=== PATIENT | male | born 1955 | race Caucasian/White ===

== ENCOUNTER 2019-11-20 06:56 | Outpatient (CLI) | payer MEDICARE, OTHER, SELFPAY ==
[2019-11-20 07:36] LABS: Alanine Aminotransferase 35 U/L (4-50); Albumin Level 4.7 g/dL (3.5-5.1); Alkaline Phosphatase 42 U/L (38-126); Aspartate Amino Transferase 37 U/L (17-59); Bilirubin,Total 0.8 mg/dL (0.2-1.3); Blood Urea Nitrogen 17 mg/dL (9-20); Calcium 9.3 mg/dL (8.4-10.2); Carbon Dioxide 29 mmol/L (22-30); Chloride 106 mmol/L (98-107); Cholesterol 144 mg/dL (0-200); Estimated Glomerular Filt Rate > 60; Glucose 101 mg/dL (75-110); HDL Direct 40 mg/dL; Potassium 4.3 mmol/L (3.4-5.0); Sodium 140 mmol/L (137-145); Triglycerides 72 mg/dL (<150)
[2019-11-20 07:47] LABS: LDL Cholesterol Direct 85 mg/dL
== END 2019-11-20 06:57 | disposition home or self-care (01) ==
PROVIDERS: PCP Family Medicine; Visit Provider Physician Assistant
DX: E03.9 Hypothyroidism, unspecified (principal); E78.5 Hyperlipidemia, unspecified
CPT/HCPCS: 36415; 80053; 80061; 84443

== ENCOUNTER 2020-01-04 11:15 | Outpatient (CLI) | payer MEDICARE, OTHER, SELFPAY ==
--- NOTE | ~2020-01-04 | CT_ITS ---
EXAMINATION: CT chest wo con DATE: 01/04/2020 11:35 INDICATION: Solitary pulmonary nodule. TECHNIQUE: Computed tomography (CT) of the chest was performed without intravenous contrast. The dose -length product was 139.23 mGy-cm. Automated exposure control and iterative reconstruction technique were employed. COMPARISON: 10/01/2015 FINDINGS: There are calcified left hilar lymph nodes as well as left lower lobe pulmonary nodules, co nsistent with chronic granulomatous disease. There is atherosclerosis of the coronary arteries. Heart size normal. No significant pleural or pericardial effusion. Visualized aspects of the upper abdomen are unremarkable. There is a 4 mm right upper lobe nodule, image 37. This was not definitely seen on prior examination. There is a 4 mm nodule left lower lobe, image 88, without significant change allo wing for difference in technique. Mild thoracic spondylosis. Visualized aspects of the upper abdomen are unremarkable. No focal airspace consolidation. No pneumothorax. IMPRESSION: 1. 4 mm nodules right upper and left lower lobe. Additional calcified granulomas are present. These f indings are likely benign. Follow-up low dose CT chest in 12 months recommended. Reviewed, dictated and finalized at location A. IMPRESSION: 1. 4 mm nodules right upper and left lower lobe. Additional calcified granuloma s are present. These findings are likely benign. Follow-up low dose CT chest in 12 months recommended.
== END 2020-01-04 11:16 | disposition home or self-care (01) ==
PROVIDERS: PCP Family Medicine; Visit Provider Physician Assistant
DX: R91.1 Solitary pulmonary nodule (principal); R91.8 Other nonspecific abnormal finding of lung field
CPT/HCPCS: 71250

== ENCOUNTER 2020-01-21 14:27 | Outpatient (CLI) | payer MEDICARE, OTHER, SELFPAY ==
--- NOTE | 2020-01-27 23:20 | WPDPFTINT ---
PFT Interpretation PFT Interpretation: DOS: 01/21/2020 REQUESTING: Shanon Frazier PA-C REASON FOR TESTING: cough, wheezing PULMONARY FUNCTION TESTS Results are reliable and reproducible Spirometry: FEV1 97%, FVC 91%, FEV1% 74%, all normal. No change with bronchodilator. Lung volumes: Total lung capacity 132% mild hyperinflation. Residual volume 186% severe air trapping. Normal airway resistance. Diffusion: DLCO 105%, normal. Flow volume loop: Normal. IMPRESSION: Normal spirometry, mild hyperinflation with severe air trapping consistent with an obstructive process, normal diffusion. Lack of response to bronchodilators should not preclude use if clinically indicated. Karyna Collier MD
== END 2020-01-21 14:28 | disposition home or self-care (01) ==
PROVIDERS: PCP Family Medicine; Visit Provider Physician Assistant
DX: R05 Cough (principal); R06.2 Wheezing
CPT/HCPCS: 94060; 94726; 94729

== ENCOUNTER 2020-05-20 07:02 | Outpatient (CLI) | payer MEDICARE, OTHER, SELFPAY ==
[2020-05-20 07:54] LABS: Hemoglobin 15.1 g/dL (14.0-18.0); Mean Corpuscular HGB Conc 33.6 g/dl (32-36); Mean Corpuscular Hemoglobin 32.2 pg (26-34); Mean Corpuscular Volume 95.9 fl (80-100); Mean Platelet Volume 11.4 fl (7.4-10.4); Platelet Count Result 189 k/mm3 (150-375); Red Blood Count 4.69 M/mm3 (4.6-6.20); White Blood Count 6.2 K/mm3 (4.5-10.0)
[2020-05-20 07:57] LABS: Add Urine Microscopic? YES; Appearance Urine Clear (Clear); Bacteria Urine Trace /hpf; Bilirubin Urine Negative (Negative); Blood Urine Negative (Negative); Color Urine Yellow (Yellow); Glucose Urine UA Negative (Negative); Ketones Urine Negative (Negative); Leukocyte Esterase Ur Negative LEU/UL (NEGATIVE); Mucus Urine Rare /lpf; Nitrate Urine Negative (Negative); Protein Urine 1+ mg/dL (Negative); RBC Urine 0-2 /hpf (0-2); Urobilinogen Urine Negative mg/dL (<2.0); WBC Urine 0-3 /hpf (0-3)
[2020-05-20 08:05] LABS: Alanine Aminotransferase 33 U/L (4-50); Albumin Level 4.3 g/dL (3.5-5.1); Alkaline Phosphatase 42 U/L (38-126); Anion Gap 6 mmol/L (8-16); Aspartate Amino Transferase 30 U/L (17-59); Bilirubin,Total 0.8 mg/dL (0.2-1.3); Blood Urea Nitrogen 18 mg/dL (9-20); Calcium 9.6 mg/dL (8.4-10.2); Carbon Dioxide 31 mmol/L (22-30); Chloride 105 mmol/L (98-107); Cholesterol 138 mg/dL (0-200); Estimated Glomerular Filt Rate > 60; Glucose 111 mg/dL (75-110); HDL Direct 43 mg/dL; Potassium 4.6 mmol/L (3.4-5.0); Sodium 142 mmol/L (137-145); Triglycerides 70 mg/dL (<150)
[2020-05-20 08:16] LABS: LDL Cholesterol Direct 80 mg/dL
[2020-05-20 08:35] LABS: Prostate Specific Antigen 0.8 ng/mL (< OR = 4.0)
== END 2020-05-20 07:03 | disposition home or self-care (01) ==
PROVIDERS: PCP Family Medicine; Visit Provider Family Medicine
DX: E78.2 Mixed hyperlipidemia (principal); I25.10 Atherosclerotic heart disease of native coronary artery without angina pectoris; E03.9 Hypothyroidism, unspecified; R35.1 Nocturia
CPT/HCPCS: 36415; 80053; 80061; 81001; 84153; 84443; 85027

== ENCOUNTER 2020-10-30 07:27 | Outpatient (CLI) | payer MEDICARE, SELFPAY ==
[2020-10-30 08:05] LABS: Basophils Absolute Auto 0.1 K/mm3 (0.0-0.1); Basophils Percent Auto 0.9 % (0.2-1.2); Eosinophils Absolute Auto 0.1 K/mm3 (0-0.3); Eosinophils Percent Auto 1.7 % (0-4.4); Hematocrit 46.1 % (42.0-52.0); Hemoglobin 15.3 g/dL (14.0-18.0); Immature Granulocyte Absolute 0.03 K/mm3 (0.00-0.031); Immature Granulocyte Percent A 0.5 % (0-0.5); Lymphocytes Absolute Auto 1.84 K/mm3 (0.9-3.2); Lymphocytes Percent Auto 27.7 % (18.3-44.2); Mean Corpuscular HGB Conc 33.2 g/dl (32-36); Mean Corpuscular Hemoglobin 32.3 pg (26-34); Mean Corpuscular Volume 97.3 fl (80-100); Monocytes Absolute Auto 0.8 K/mm3 (0.1-0.6); Monocytes Percent Auto 11.4 % (2.6-8.5); Neutrophils Absolute Auto 3.8 K/mm3 (1.3-6.7); Neutrophils Percent Auto 57.8 % (45.5-73.1); Platelet Count Result 205 k/mm3 (150-375); Red Blood Count 4.74 M/mm3 (4.6-6.20); White Blood Count 6.6 K/mm3 (4.5-10.0)
[2020-10-30 08:13] LABS: Alanine Aminotransferase 35 U/L (4-50); Albumin Level 4.4 g/dL (3.5-5.1); Alkaline Phosphatase 42 U/L (38-126); Anion Gap 4 mmol/L (8-16); Aspartate Amino Transferase 35 U/L (17-59); Bilirubin,Total 0.6 mg/dL (0.2-1.3); Blood Urea Nitrogen 15 mg/dL (9-20); Calcium 9.5 mg/dL (8.4-10.2); Carbon Dioxide 29 mmol/L (22-30); Chloride 108 mmol/L (98-107); Estimated Glomerular Filt Rate > 60; Glucose 104 mg/dL (75-110); Glucose 105 mg/dL (75-110); Potassium 4.4 mmol/L (3.4-5.0); Sodium 141 mmol/L (137-145)
[2020-10-30 08:25] LABS: Hemoglobin A1C 5.8 % (<5.7)
[2020-11-06 00:19] LABS: ANCA Screen Negative (Negative)
== END 2020-10-30 07:28 | disposition home or self-care (01) ==
PROVIDERS: PCP Family Medicine; Visit Provider Family Medicine
DX: E11.65 Type 2 diabetes mellitus with hyperglycemia (principal); H35.63 Retinal hemorrhage, bilateral; H35.82 Retinal ischemia; E03.9 Hypothyroidism, unspecified; E78.5 Hyperlipidemia, unspecified
CPT/HCPCS: 36415; 80053; 82947; 83036; 84443; 85025; 86021

== ENCOUNTER 2021-06-01 06:44 | Outpatient (CLI) | payer MEDICARE, SELFPAY ==
[2021-06-01 07:28] LABS: Hematocrit 46.1 % (42.0-52.0); Hemoglobin 15.5 g/dL (14.0-18.0); Mean Corpuscular HGB Conc 33.6 g/dl (32-36); Mean Corpuscular Hemoglobin 32.4 pg (26-34); Mean Corpuscular Volume 96.4 fl (80-100); Mean Platelet Volume 10.6 fl (7.4-10.4); Platelet Count Result 186 k/mm3 (150-375); Red Blood Count 4.78 M/mm3 (4.6-6.20); White Blood Count 6.2 K/mm3 (4.5-10.0)
[2021-06-01 07:32] LABS: Add Urine Microscopic? YES; Appearance Urine Clear (Clear); Bilirubin Urine Negative (Negative); Blood Urine Negative (Negative); Color Urine Yellow (Yellow); Glucose Urine UA Negative (Negative); Ketones Urine Negative (Negative); Leukocyte Esterase Ur Negative LEU/UL (NEGATIVE); Mucus Urine Rare /lpf; Nitrate Urine Negative (Negative); Protein Urine Negative (Negative); RBC Urine 0-2 /hpf (0-2); Specific Grav Ur 1.017 (1.001-1.035); Urobilinogen Urine Negative mg/dL (<2.0); WBC Urine 0-3 /hpf (0-3)
[2021-06-01 07:34] LABS: Hemoglobin A1C 5.5 % (<5.7)
[2021-06-01 07:38] LABS: Alanine Aminotransferase 26 U/L (4-50); Albumin Level 4.5 g/dL (3.5-5.1); Alkaline Phosphatase 43 U/L (38-126); Anion Gap 7 mmol/L (8-16); Aspartate Amino Transferase 28 U/L (17-59); Bilirubin,Total 0.8 mg/dL (0.2-1.3); Blood Urea Nitrogen 13 mg/dL (9-20); Calcium 9.4 mg/dL (8.4-10.2); Carbon Dioxide 27 mmol/L (22-30); Chloride 103 mmol/L (98-107); Cholesterol 144 mg/dL (0-200); Estimated Glomerular Filt Rate > 60; Glucose 108 mg/dL (65-110); HDL Direct 40 mg/dL; Potassium 4.4 mmol/L (3.4-5.0); Sodium 137 mmol/L (137-145); Triglycerides 76 mg/dL (<150)
[2021-06-01 07:50] LABS: LDL Cholesterol Direct 81 mg/dL
== END 2021-06-01 06:45 | disposition home or self-care (01) ==
PROVIDERS: PCP Family Medicine; Visit Provider Family Medicine
DX: R73.01 Impaired fasting glucose (principal); J44.9 Chronic obstructive pulmonary disease, unspecified; E03.8 Other specified hypothyroidism; E78.5 Hyperlipidemia, unspecified; Z12.5 Encounter for screening for malignant neoplasm of prostate
CPT/HCPCS: 36415; 80053; 80061; 81001; 83036; 84153; 84443; 85027

== ENCOUNTER 2021-12-16 09:43 | Outpatient (CLI) | payer MEDICARE, SELFPAY ==
[2021-12-16 10:11] LABS: Alanine Aminotransferase 26 U/L (6-50); Albumin Level 4.5 g/dL (3.5-5.1); Alkaline Phosphatase 41 U/L (38-126); Anion Gap 8 mmol/L (8-16); Aspartate Amino Transferase 29 U/L (17-59); Blood Urea Nitrogen 17 mg/dL (9-20); Calcium 9.2 mg/dL (8.4-10.2); Carbon Dioxide 25 mmol/L (22-30); Chloride 108 mmol/L (98-107); Estimated Glomerular Filt Rate > 60; Glucose 100 mg/dL (65-110); Potassium 4.4 mmol/L (3.4-5.0); Sodium 141 mmol/L (137-145)
== END 2021-12-16 09:44 | disposition home or self-care (01) ==
PROVIDERS: PCP Family Medicine; Visit Provider Physician Assistant
DX: K21.9 Gastro-esophageal reflux disease without esophagitis (principal); E78.5 Hyperlipidemia, unspecified; E03.9 Hypothyroidism, unspecified
CPT/HCPCS: 36415; 80053; 84443

== ENCOUNTER 2022-06-15 06:55 | Outpatient (CLI) | payer MEDICARE, SELFPAY ==
[2022-06-15 07:17] LABS: Hematocrit 45.4 % (42.0-52.0); Hemoglobin 15.1 g/dL (14.0-18.0); Mean Corpuscular HGB Conc 33.3 g/dl (32-36); Mean Corpuscular Hemoglobin 32.1 pg (26-34); Mean Corpuscular Volume 96.4 fl (80-100); Mean Platelet Volume 11.3 fl (7.4-10.4); Platelet Count Result 186 k/mm3 (150-375); Red Blood Count 4.71 M/mm3 (4.6-6.20); Red Cell Distribution Width 11.9 % (11.5-14.5)
[2022-06-15 07:31] LABS: Alanine Aminotransferase 29 U/L (6-50); Albumin Level 4.6 g/dL (3.5-5.1); Alkaline Phosphatase 42 U/L (38-126); Anion Gap 4 mmol/L (8-16); Aspartate Amino Transferase 31 U/L (17-59); Bilirubin,Total 0.7 mg/dL (0.2-1.3); Blood Urea Nitrogen 19 mg/dL (9-20); Calcium 9.1 mg/dL (8.4-10.2); Carbon Dioxide 31 mmol/L (22-30); Chloride 107 mmol/L (98-107); Cholesterol 128 mg/dL (0-200); Estimated Glomerular Filt Rate > 60; Glucose 107 mg/dL (65-110); HDL Direct 38 mg/dL; Potassium 4.3 mmol/L (3.4-5.0); Sodium 142 mmol/L (137-145); Triglycerides 56 mg/dL (<150)
[2022-06-15 07:42] LABS: LDL Cholesterol Direct 66 mg/dL
[2022-06-15 08:00] LABS: Prostate Specific Antigen 0.6 ng/mL (< OR = 4.0)
[2022-06-15 08:17] LABS: Add Urine Microscopic? NO; Appearance Urine Clear (Clear); Bilirubin Urine Negative (Negative); Blood Urine Negative (Negative); Color Urine Yellow (Yellow); Glucose Urine UA Negative (Negative); Ketones Urine Negative (Negative); Leukocyte Esterase Ur Negative LEU/UL (NEGATIVE); Nitrate Urine Negative (Negative); Protein Urine Negative (Negative); Specific Grav Ur >= 1.030 (1.001-1.035); Urobilinogen Urine 0.2 mg/dL (<2.0)
[2022-06-15 08:44] LABS: Hemoglobin A1C 5.9 % (<5.7)
== END 2022-06-15 06:56 | disposition home or self-care (01) ==
PROVIDERS: PCP Family Medicine; Visit Provider Family Medicine
DX: R73.01 Impaired fasting glucose (principal); E03.9 Hypothyroidism, unspecified; E78.5 Hyperlipidemia, unspecified; I25.10 Atherosclerotic heart disease of native coronary artery without angina pectoris; R35.1 Nocturia
CPT/HCPCS: 36415; 80053; 80061; 81003; 83036; 84153; 84443; 85027

== ENCOUNTER 2022-11-25 06:35 | Outpatient (CLI) | payer MEDICARE, SELFPAY ==
[2022-11-25 07:13] LABS: Hemoglobin A1C 5.6 % (<5.7)
[2022-11-25 07:18] LABS: Alanine Aminotransferase 36 U/L (6-50); Albumin Level 4.5 g/dL (3.5-5.1); Alkaline Phosphatase 38 U/L (38-126); Anion Gap 8 mmol/L (8-16); Aspartate Amino Transferase 33 U/L (17-59); Bilirubin,Total 0.9 mg/dL (0.2-1.3); Blood Urea Nitrogen 18 mg/dL (9-20); Carbon Dioxide 26 mmol/L (22-30); Chloride 106 mmol/L (98-107); Cholesterol 140 mg/dL (0-200); Estimated Glomerular Filt Rate > 60; Glucose 93 mg/dL (65-110); HDL Direct 42 mg/dL; Sodium 140 mmol/L (137-145); Triglycerides 86 mg/dL (<150)
[2022-11-25 07:29] LABS: LDL Cholesterol Direct 78 mg/dL
== END 2022-11-25 06:36 | disposition home or self-care (01) ==
LOC: ANHLAB 06:36
PROVIDERS: PCP Family Medicine; Visit Provider Family Medicine
DX: E78.5 Hyperlipidemia, unspecified (principal); E03.9 Hypothyroidism, unspecified; R73.01 Impaired fasting glucose
CPT/HCPCS: 36415; 80053; 80061; 83036; 84443

== ENCOUNTER → 2023-01-05 08:33 | Outpatient (CLI) | payer MEDICARE, SELFPAY ==
--- NOTE | ~2023-01-05 | XR_ITS ---
AP and lateral views of the bilateral hips Clinical history: Pain Findings: No acute fracture or dislocation is seen. Osseous alignment is anatomic. Bilateral hip join ts and bilateral SI joints are preserved. Soft tissues are unremarkable. Impression: No significant abnormality is seen. Reviewed, dictated and finalized at [facility]. Impression: No significant abnormality is seen.
== END ==
PROVIDERS: PCP Family Medicine; Visit Provider Family Medicine
DX: M25.551 Pain in right hip (principal); M25.552 Pain in left hip
CPT/HCPCS: 73521

== ENCOUNTER → 2023-01-20 09:42 | Outpatient (CLI) | payer MEDICARE, SELFPAY ==
--- NOTE | ~2023-01-20 | XR_ITS ---
Lumbosacral Spine: AP and lateral views Clinical History: Pain Findings: There is 18 degrees levoscoliosis of lumbar spine. No fracture evident. There is severe deg enerative disc narrowing at L2-L3, L3-L4, L4-L5. There is 4 mm retrolisthesis of L1 over L2. There is moderate facet arthropathy throughout the lumbar spine. The intervertebral disc spaces are preserved . The sacroiliac joints are normally outlined. Impression: 4 mm retrolisthesis of L1 over L2. 18 degrees levoscoliosis. Moderate to advanced degenerative spondylosis, as detailed above. Reviewed, dictated and finalized at location M. Impression: 4 mm retrolisthesis of L1 over L2. 18 degrees levoscoliosis. Moderate to advanced degenerative spondylosis, as detailed above.
== END ==
PROVIDERS: PCP Family Medicine; Visit Provider Family Medicine
DX: M25.551 Pain in right hip (principal); M25.552 Pain in left hip; M47.896 Other spondylosis, lumbar region
CPT/HCPCS: 72100

== ENCOUNTER 2023-03-15 08:00 | Outpatient (RCR) | payer MEDICARE, SELFPAY ==
--- NOTE | 2023-02-15 09:45 | OPREHPOC ---
Outpatient Therapy Plan of Care This is a Multidisciplinary Plan of Care that may contain components documented by all disciplines (PT, OT, and ST.) PT Problem 1 PT Problem #1 Knowledge Deficit PT Goal 1 Goal 1* indep with HEP 2* demonstrate correct posture with exercises PT Problem 2 PT Problem #2 Pain PT Goal 1 Goal 1* pt report pain rating of 1/10 at worst 2* pt self assessment Oswestry score of 16% limitation in functional activity level PT Problem 3 PT Problem #3 Impaired Flexibility PT Goal 1 Goal hamstring length with supine SLR to 55' 1* R 2* L supine piriformis length with hip and knee flexion > 90', cross midline of body 3* R 4* L 5* anterior hip/quad length with prone knee flexion R 135' PT Problem 4 PT Problem #4 Impaired Strength PT Goal 1 Goal 1* pt perform supine bridge 20 reps with 5 sec hold and good hip stability single leg standing with good stability 15 seconds 2* R 3* L 4* pt perform hip and trunk strengthening exercises in standing 20 reps
--- NOTE | 2023-02-15 09:46 | PTOPEVAL1 ---
Assessment and note entered by Salima Uriostegui, PT Evaluation Information Assessment Status Evaluation Diagnosis low back pain, spondylosis Onset begin December Subjective Information Shahzad reports: was sitting, went to stand up and pain shot down leg; had xray of hip and back; have not been walking since back pain increased; have not had any PT for back; ACTIVITY: retired, golf, walk for fitness; history of being a runner and did marathons; Reported Pain Level Pain Score Self Report Additional Pain Score Comments pain range in the past week 1-2/; pain increase with standing 15-20 min pain decrease with sit/rest; moving sleeping is OK; Oswestry self assessment score of 22% functioanl limitation. Assessment PT Clinical Summary Shahzad has the diagnosis of low back pain, spondylosis. Pain is increased with standing and decreased with sitting or walking. Self assessment Oswestry score of 22% limitation in activity level. He does not perform any exercises for his back at home. But does have a [employer] membership. With the evaluation: he has tightness over R and L hamstring & piriformis and R anterior hip/quad, with weakness over trunk and hips--is not able to single leg stand; in standing, has postural changes with curvature of his spine and decreased R and L hip IR motion. Skilled PT services are indicated for modalities to decrease pain, therapeutic exercises to increase flexibility and strength of trunk and hips, with education for HEP and posture. Plan of Care Interventions Electrical Stimulation,Hot Pack/Cold Pack,Manual Therapy,Neuro Re-education,Patient Education,Therapeutic Activities,Therapeutic Exercise,Ultrasound,Other Other Interventions taping, I[facility] PT Services Indicated Yes Treatment Frequency and 1x/wk for 4 weeks Duration These treatments will address the objective and functional deficits as defined above. The patient will be advanced safely and appropriately in order for the patient to progress towards his/her prior level of function. Additional exercises will be intr
--- NOTE | 2023-03-15 08:30 | PTOPDC ---
Assessment and note entered by Salima Uriostegui, PT Evaluation Information Assessment Status Discharge Diagnosis low back pain, spondylosis Onset begin December Subjective Information is pleased with how he has improved since coming for therapy; likes the exercises and knows how to manage his back pain; has been walking every day outside at the park; agrees to d/c from PT; Reported Pain Level Pain Score Self Report Additional Pain Score Comments pain range in the past week: 0-4/10, stiff and sore, in low back L > R; no pain in legs decrease pain with moving, walking increase pain- not able to identify any causes reviewed and reinforced pain management with activity/rest balance; use of heat PRN, stretching and moving to keep flexibility and strength; Assessment PT Clinical Summary Shahzad has received 5 PT sessions. He has improved in all areas, except pain rating at the highest rating; increase trunk and hip strength, flexibility of hamstrings, anterior hip- quads and piriformis muscles bilateral, education completed for home exercises, posture and body mechanics. Self assessment Oswestry functional limitation score from 22 to 18% limitation in activity level. The goals were achieved, except pain rating at the worst. Discharge PT services. He is to continue with his home exercises. Plan of Care PT Services Indicated No
== END 2023-03-15 11:11 | disposition home or self-care (01) ==
LOC: ANHPT 08:00
PROVIDERS: PCP Family Medicine; Visit Provider Physician Assistant
DX: M54.50 Low back pain, unspecified (principal); M47.816 Spondylosis without myelopathy or radiculopathy, lumbar region
CPT/HCPCS: 97110; 97161; 97530

== ENCOUNTER 2023-06-29 06:38 | Outpatient (CLI) | payer MEDICARE, SELFPAY ==
[2023-06-29 07:55] LABS: Hematocrit 47.5 % (42.0-52.0); Hemoglobin 15.9 g/dL (14.0-18.0); Mean Corpuscular HGB Conc 33.5 g/dl (32-36); Mean Corpuscular Hemoglobin 31.9 pg (26-34); Mean Corpuscular Volume 95.4 fl (80-100); Mean Platelet Volume 10.9 fl (7.4-10.4); Platelet Count Result 209 k/mm3 (150-375); Red Blood Count 4.98 M/mm3 (4.6-6.20); Red Cell Distribution Width 11.9 % (11.5-14.5)
[2023-06-29 07:56] LABS: Appearance Urine Clear (Clear); Bilirubin Urine Negative (Negative); Blood Urine Negative (Negative); Color Urine Yellow (Yellow); Glucose Urine UA Negative (Negative); Ketones Urine Negative (Negative); Leukocyte Esterase Ur Negative LEU/UL (NEGATIVE); Nitrate Urine Negative (Negative); Protein Urine Negative (Negative); Specific Grav Ur 1.023 (1.001-1.035); Urobilinogen Urine 0.2 mg/dL (<2.0)
[2023-06-29 08:03] LABS: Add Urine Microscopic? NO
[2023-06-29 08:08] LABS: Alanine Aminotransferase 41 U/L (6-50); Albumin Level 4.2 g/dL (3.5-5.1); Alkaline Phosphatase 49 U/L (38-126); Anion Gap 11 mmol/L (8-16); Aspartate Amino Transferase 35 U/L (17-59); Blood Urea Nitrogen 16 mg/dL (9-20); Calcium 9.2 mg/dL (8.4-10.2); Carbon Dioxide 26 mmol/L (22-30); Chloride 105 mmol/L (98-107); Cholesterol 165 mg/dL (0-200); Estimated Glomerular Filt Rate > 60; Glucose 96 mg/dL (65-110); HDL Direct 42 mg/dL; Potassium 3.9 mmol/L (3.4-5.0); Sodium 142 mmol/L (137-145); Triglycerides 122 mg/dL (<150)
[2023-06-29 08:19] LABS: LDL Cholesterol Direct 96 mg/dL
[2023-06-29 08:36] LABS: Prostate Specific Antigen 0.8 ng/mL (< OR = 4.0)
[2023-06-29 09:04] LABS: Hemoglobin A1C 5.7 % (<5.7)
== END 2023-06-29 06:39 | disposition home or self-care (01) ==
PROVIDERS: PCP Family Medicine; Visit Provider Family Medicine
DX: E03.9 Hypothyroidism, unspecified (principal); E78.5 Hyperlipidemia, unspecified; I25.10 Atherosclerotic heart disease of native coronary artery without angina pectoris; R35.1 Nocturia; R73.01 Impaired fasting glucose; Z00.00 Encounter for general adult medical examination without abnormal findings
CPT/HCPCS: 36415; 80053; 80061; 81003; 83036; 84153; 84443; 85027

== ENCOUNTER 2023-07-23 12:34 | Emergency (ER) | payer MEDICARE, SELFPAY ==
--- NOTE | 2023-07-23 12:37 | ED.URI ---
HPI - URI/Sore Throat General Chief Complaint: Upper Respiratory Infection Stated Complaint: SORE THROAT Time Seen by Provider: 07/23/23 13:11 Source: patient and RN notes reviewed Mode of arrival: ambulatory Limitations: no limitations History of Present Illness HPI Narrative: 68-year-old male presents with concern of for 2-3 day history of scratchy throat and raspy voice. Reports occasional cough. Denies fever, body aches, chills, sweats. Reports some nasal congestion and rhinorrhea. Reports he has been taking DayQuil and NyQuil with some relief MD elicited complaint: sore throat Related Data Home Medications Medication Instructions Recorded Confirmed ascorbic acid 1,000 1 mg PO DAILY 04/27/19 06/29/23 ar-mjnkndpcvhng-kwdfados powder effervescent pack (Emergen-C) aspirin 81 mg tablet,delayed 81 mg PO DAILY 04/27/19 06/29/23 release (Aspir-) cinnamon bark 500 mg capsule 500 mg PO DAILY 04/27/19 06/29/23 (Cinnamon) digestive no.8-L.acidophilus 50 1 tablet PO DAILY 04/27/19 06/29/23 million cell-pectin 100 mg tablet (Digestive Enzyme (acidophilus, pectin, bromelain)) omega 8-uhq-ayr-fish oil 1,000 mg 1 cap PO DAILY 04/27/19 06/29/23 (120 mg-180 mg) capsule (Fish Oil) Allergies Allergy/AdvReac Type Severity Reaction Status Date / Time No Known Allergies Allergy Verified 07/23/23 12:49 Review of Systems Review of Systems: CONSTITUTIONAL: Denies malaise, chills, sweats, or fever. EYES: Denies visual changes, redness, or discharge. ENT: Reports rhinorrhea, congestion, and sore throat. CARDIOVASCULAR: Denies chest pain, palpitations, or edema. RESPIRATORY: Reports occasional cough. Denies dyspnea. GASTROINTESTINAL: Denies abdominal pain, nausea, vomiting, diarrhea SKIN: Denies rash or itching. MUSCULOSKELETAL: Denies myalgia. NEUROLOGIC: Denies headache. All systems reviewed & are unremarkable except as noted in HPI and below PMFSH Past Medical History Medical History Colon cancer screening Gastritis Gastro-esophageal reflux Hyperlipidemia Hypothyroid IFG (impaired fasting glucose) Obstructive sleep apnea Obstructive sleep apnea syndrome Reflux esophagitis Vocal cord bowing Surgical History Surgical History History of appendectomy Family History Family History Sibling Family history of alcoholism Family history of diabetes mellitus in first degree relative Patient's brother is Diabetes mellitus Father Family history of diabetes mellitus in first degree relative Family history of lung cancer Patient's father is Diabetes mellitus Family history of malignant neoplasm Mother Family history of heart disease in male family member before age 55 Family history of cardiovascular disease Social History Social History Smoking status: Never smoker Second hand tobacco smoke exposure: No Alcohol intake: current Drinks per week: 3 Substance use: never Substance use type: does not use Living arrangements: with family Occupation/Education: retired Gender identity (if verbalized by the patient): Male Comments At time of signature, agree with nursing past medical, surgical, social and family history. There is no relevant family history pertinent to the presenting complaint Exam Narrative: GENERAL: Well-appearing, well-nourished, and in no acute distress. HEAD: Normocephalic EYES: PERRLA, conjunctivae clear ENT: Nares clear, turbinates edematous and erythematous, clear discharge. Mucous membranes moist. TM pearly petersen with sharp light reflex bilaterally; no tragal tenderness. Oropharynx not erythematous without lesions. Tonsils not enlarged and without exudate, no drooling, no hoarseness, no trismus, uvula midl
[2023-07-23 12:57] VITALS: BP 108/81; PULSE 65; RESP 16; TEMP 36.9; O2SAT 98
== END 2023-07-23 13:23 | disposition home or self-care (01) ==
PROVIDERS: Emergency Provider Nurse Practitioner; PCP Family Medicine
DX: J06.9 Acute upper respiratory infection, unspecified (principal); Z20.822 Contact with and (suspected) exposure to COVID-19; K21.9 Gastro-esophageal reflux disease without esophagitis; E78.5 Hyperlipidemia, unspecified; E03.9 Hypothyroidism, unspecified; K21.00 Gastro-esophageal reflux disease with esophagitis, without bleeding
CPT/HCPCS: 87081; 87426; 87804; 87880; 99213; G0463

== ENCOUNTER 2024-01-02 06:41 | Outpatient (CLI) | payer MEDICARE, SELFPAY ==
[2024-01-02 07:16] LABS: Alanine Aminotransferase 31 U/L (6-50); Albumin Level 4.4 g/dL (3.5-5.1); Alkaline Phosphatase 52 U/L (38-126); Anion Gap 9 mmol/L (4-12); Aspartate Amino Transferase 33 U/L (17-59); Bilirubin,Total 0.8 mg/dL (0.2-1.3); Blood Urea Nitrogen 16 mg/dL (9-20); Calcium 9.6 mg/dL (8.4-10.2); Carbon Dioxide 27 mmol/L (22-30); Chloride 105 mmol/L (98-107); Estimated Glomerular Filt Rate > 60; Glucose 110 mg/dL (65-110); Potassium 4.4 mmol/L (3.4-5.0); Sodium 141 mmol/L (137-145)
[2024-01-04 11:49] LABS: Hemoglobin A1C 5.7 % (<5.7)
== END 2024-01-02 06:42 | disposition home or self-care (01) ==
LOC: ANHLAB 06:45
PROVIDERS: PCP Family Medicine; Visit Provider Family Medicine
DX: E03.9 Hypothyroidism, unspecified (principal); E78.5 Hyperlipidemia, unspecified; I25.10 Atherosclerotic heart disease of native coronary artery without angina pectoris; R73.01 Impaired fasting glucose
CPT/HCPCS: 36415; 80053; 83036; 84443

== ENCOUNTER 2024-06-29 06:45 | Outpatient (CLI) | payer MEDICARE, SELFPAY ==
[2024-06-29 07:53] LABS: Hematocrit 45.8 % (42.0-52.0); Hemoglobin 15.2 g/dL (14.0-18.0); Mean Corpuscular HGB Conc 33.2 g/dl (32-36); Mean Corpuscular Hemoglobin 31.9 pg (26-34); Mean Platelet Volume 11.4 fl (7.4-10.4); Platelet Count Result 175 k/mm3 (150-375); Red Blood Count 4.77 M/mm3 (4.6-6.20); Red Cell Distribution Width 11.8 % (11.5-14.5); White Blood Count 6.4 K/mm3 (4.5-10.0)
[2024-06-29 07:55] LABS: Add Urine Microscopic? NO; Appearance Urine Clear (Clear); Bilirubin Urine Negative (Negative); Blood Urine Negative (Negative); Color Urine Yellow (Yellow); Glucose Urine UA Negative (Negative); Ketones Urine Negative (Negative); Leukocyte Esterase Ur Negative LEU/UL (Negative); Nitrate Urine Negative (Negative); Protein Urine Negative (Negative); Specific Grav Ur 1.021 (1.001-1.035); pH Urine 6.5 (5.0-9.0)
[2024-06-29 08:04] LABS: Alanine Aminotransferase 25 U/L (6-50); Albumin Level 4.2 g/dL (3.5-5.1); Alkaline Phosphatase 44 U/L (38-126); Anion Gap 2 mmol/L (4-12); Aspartate Amino Transferase 24 U/L (17-59); Bilirubin,Total 0.9 mg/dL (0.2-1.3); Blood Urea Nitrogen 20 mg/dL (9-20); Carbon Dioxide 30 mmol/L (22-30); Chloride 108 mmol/L (98-107); Cholesterol 140 mg/dL (0-200); Estimated Glomerular Filt Rate > 60; Glucose 107 mg/dL (65-110); HDL Direct 42 mg/dL; Potassium 4.2 mmol/L (3.4-5.0); Sodium 140 mmol/L (137-145); Triglycerides 88 mg/dL (<150)
[2024-06-29 08:10] LABS: Hemoglobin A1C 5.9 % (<5.7)
[2024-06-29 08:15] LABS: LDL Cholesterol Direct 68 mg/dL
[2024-06-29 08:35] LABS: Prostate Specific Antigen 0.6 ng/mL (< OR = 4.0)
== END 2024-06-29 06:46 | disposition home or self-care (01) ==
PROVIDERS: PCP Family Medicine; Visit Provider Family Medicine
DX: E78.5 Hyperlipidemia, unspecified (principal); I25.10 Atherosclerotic heart disease of native coronary artery without angina pectoris; E03.9 Hypothyroidism, unspecified; R73.01 Impaired fasting glucose; Z00.00 Encounter for general adult medical examination without abnormal findings; R35.1 Nocturia; Z68.28 Body mass index [BMI] 28.0-28.9, adult
CPT/HCPCS: 36415; 80053; 80061; 81003; 83036; 84153; 84443; 85027

== ENCOUNTER 2024-07-25 15:27 | Outpatient (CLI) | payer MEDICARE, SELFPAY ==
--- NOTE | ~2024-07-25 | XR_ITS ---
XR_[id number]_CR 07/25/2024 15:46 Indication: Cervicalgia Procedure: 3 view cervical spine Comparison: No prior studies for comparison. Findings: There is advanced multilevel facet and uncinate hypertrophy. There is degenerative anteroli sthesis at C4-5 and retrolisthesis at C5-6. There is disc narrowing at C5-6 and C6-7. No prevertebral soft tissue swelling. Odontoid process is normal. Lateral masses normally aligned. Lung apices are n ormal. Impression: 1: Severe cervical spondylosis. Reviewed, dictated and finalized at location A. O [employer] Impression: 1: Severe cervical spondylosis.
== END 2024-07-25 15:28 | disposition home or self-care (01) ==
LOC: MICIMG 15:29
PROVIDERS: PCP Family Medicine; Visit Provider Family Medicine
DX: M47.812 Spondylosis without myelopathy or radiculopathy, cervical region (principal)
CPT/HCPCS: 72040

== ENCOUNTER 2024-07-28 08:18 | Emergency (ER) | payer MEDICARE, SELFPAY ==
[2024-07-28 08:30] VITALS: BP 121/81; PULSE 67; RESP 16; TEMP 36.9; O2SAT 99
--- NOTE | 2024-07-28 08:30 | ED_ITS ---
HPI - URI/Sore Throat General Chief Complaint: Upper Respiratory Infection Stated Complaint: Cough Time Seen by Provider: 07/28/24 08:30 Source: patient Mode of arrival: ambulatory Limitations: no limitations History of Present Illness HPI Narrative: Shahzad is a 69-year-old male patient presenting to the clinic today with complaints of cough, slight headache, postnasal drip, sore throat x 2-3 days. He denies any fevers, chills, or body aches. Denies any shortness of breath or chest pain. Denies any new medications. Has been taking Mucinex for his symptoms. MD elicited complaint: sore throat and nasal congestion Related Data Home Medications ?Medication ?Instructions ?Recorded ?Confirmed ?Last Taken ?Type ascorbic acid 1,000 1 mg PO DAILY 04/27/19 07/25/24 05/02/19 History nz-tiibwqonhegg-ykrojbrd powder effervescent pack (Emergen-C) aspirin 81 mg tablet,delayed 81 mg PO DAILY 04/27/19 07/25/24 05/02/19 History release (Aspir-) cinnamon bark 500 mg capsule 500 mg PO DAILY 04/27/19 07/25/24 05/02/19 History (Cinnamon) digestive no.8-L.acidophilus 50 1 tablet PO DAILY 04/27/19 07/25/24 05/02/19 History million cell-pectin 100 mg tablet (Digestive Enzyme (acidophilus, pectin, bromelain)) omega 6-cfr-lya-fish oil 1,000 mg 1 cap PO DAILY 04/27/19 07/25/24 05/02/19 History (120 mg-180 mg) capsule (Fish Oil) Allergies Allergy/AdvReac Type Severity Reaction Status Date / Time No Known Allergies Allergy Verified 07/28/24 08:33 Review of Systems Review of Systems: Pertinent positives per HPI. Patient denies any fever, chills, rash, visual changes, dizziness, shortness of breath, chest pain, palpitations, nausea, vomiting, diarrhea, constipation, abdominal pain, or any urinary issues. [facility] Past Medical History Medical History Lumbar spondylolysis Obstructive sleep apnea syndrome Vocal cord bowing Colon cancer screening IFG (impaired fasting glucose) Gastritis Reflux esophagitis Gastro-esophageal reflux Obstructive sleep apnea Hypothyroid Hyperlipidemia Surgical History Surgical History History of appendectomy Family History Family History Sibling Family history of alcoholism Family history of diabetes mellitus in first degree relative Patient's brother is Diabetes mellitus Father Family history of diabetes mellitus in first degree relative Family history of lung cancer Patient's father is Diabetes mellitus Family history of malignant neoplasm Mother Family history of heart disease in male family member before age 55 Family history of cardiovascular disease Social History Social History Smoking status: Never smoker Second hand tobacco smoke exposure: No Alcohol intake: current Drinks per week: 3 Substance use: never Substance use type: does not use Living arrangements: with family Occupation/Education: retired Gender identity (if verbalized by the patient): Male Comments At the time of my signature, I reviewed and agree with the nursing past medical, surgical, social, and family history. There is no relevant family history pertinent to the patient complaint. Exam Narrative: General: Well-developed, well nourished, in no apparent distress Head: Normocephalic, atraumatic Eyes: Pupils equally round and reactive to light bilaterally, EOM intact, sclera and conjunctive clear, no discharge, lids normal Ears: TMs intact and clear, ear canals clear, no drainage, grossly hearing normal. Nose: Nares patent, clear nasal discharge, no inflammation, no sinus tenderness. Mouth: Oral pharynx red without lesions or masses, good dentition, MMM. Postnasal drip Neck: Supple, trachea midline, no enlargement of anterior or posterior cervical nodes, no thyroid masses or goiter palpable. Cardio: Regular rate and rhythm, s1 and s2 normal, no murmur appreciated. Resp: Clear to auscultation bilaterally, no rhonchi, rales, wheezing or rubs Course Course Emergency Course: Portions of this record may have been created with voice recognition software. Level of Care: Express Care Visit Vital Signs Vital signs: Vital Signs Temperature 36.9 C 07/28/24 08:30 Pulse Rate 67 07/28/24 08:30 Respiratory Rate 16 07/28/24 08:30 Blood Pressure 121/81 07/28/24 08:30 Pulse Oximetry 99 07/28/24 08:30 Temperature 36.9 C 07/28/24 08:30 Pulse Rate 67 07/28/24 08:30 Respiratory Rate 16 07/28/24 08:30 Blood Pressure 121/81 07/28/24 08:30 Pulse Oximetry 99 07/28/24 08:30 Vital signs reviewed MDM - URI/Sore Throat MDM Narrative Medical decision making narrative: At the time of visit patient is resting comfortably on the exam table. Patient appears to be nontoxic. Labs: COVID and strep test were performed. All testing was negative. We will send strep for culture. Plan: I suspect patient has URI. Prescription for prednisone was sent to the pharmacy. Supportive measures were discussed with the patient and they voiced understanding discharge instructions and agrees to treatment plan. Return precautions reviewed Differential Diagnosis Differential diagnosis: Likely upper respiratory infection, otitis media, sinusitis, viral infection, bronchitis, influenza, pharyngitis and other (COVID) Lab Data Labs: Lab Results 07/28/24 Range/Units 08:49 POC SARS CoV-2 Ag Negative (Negative) POC Grp A Strep Screen Negative (Negative) Discharge Plan Discharge Clinical Impression: Acute upper respiratory infection Patient Disposition: Home, Self-Care Condition: Stable Instructions: Antibiotic Form, Upper Respiratory Infection (ED) Additional Instructions: COVID and strep test were negative. We will send strep for culture. Take prescription medications only as prescribed-prednisone Increase fluids and stay well hydrated Tylenol/motrin for pain/fever Flonase and OTC antihistamines as directed Vicks vapor rub to open sinuses Sinus rinses for congestion Cepacol spray, cough drops, throat lozenges, warm tea with honey/lemon, gargle salt water to soothe throat BRAT diet for diarrhea Clear liquids x 24 hours then advance as tolerated for nausea/vomiting Go to the ED if you develop a worsening in your condition- high fever not contro lled by Tylenol or Motrin, dehydration, weakness, lethargy, shortness of breath, or chest pain. Follow up with your PCP in 3-5 days if symptoms persist. Patient Language: Danish Prescriptions: New prednisone 20 mg tablet 40 mg PO DAILY 5 Days Qty: 10 0RF No Action ipratropium bromide 21 mcg (0.03 %) spray,non-aerosol 2 spray NASAL TID PRN (Reason: nasal drainage) Qty: 30 0RF Rx Instructions: administer into each nostril albuterol sulfate 90 mcg/actuation HFA aerosol inhaler 1 inhalation INHALATION Q4H PRN (Reason: shortness of breath or wheezing) Qty: 6.7 3RF aspirin [Aspir-81] 81 mg Tablet,Delayed Release (Dr/Ec) 81 mg PO DAILY cinnamon bark [Cinnamon] 500 mg Capsule 500 mg PO DAILY Emergen-C 1,000 mg Powder Effervescent In Packet 1 mg PO DAILY omega 3-mia-yma-fish oil [Fish Oil] 1,000 mg (120 mg-180 mg) Capsule 1 cap PO DAILY Digestive Enzyme (acidoph,pec) 50 million cell-100 mg Tablet 1 tablet PO DAILY Trelegy Ellipta 100-62.5-25 mcg blister with device 1 inh INHALATION Q24H Qty: 60 2RF pantoprazole 40 mg tablet,delayed release (DR/EC) 40 mg PO QAM Qty: 90 5RF rosuvastatin 5 mg tablet See Rx Instructions .ROUTE .COMPLEX Qty: 90 5RF Dose Instruction: TAKE ONE TABLET BY MOUTH DAILY Rx Instructions: TAKE ONE TABLET BY MOUTH DAILY levothyroxine 25 mcg tablet See Rx Instructions .ROUTE .COMPLEX Qty: 90 5RF Dose Instruction: TAKE ONE TABLET BY MOUTH DAILY Rx Instructions: TAKE ONE TABLET BY MOUTH DAILY methylprednisolone [Medrol (Sammy)] 4 mg tablets,dose pack See Rx Instructions PO PER PKG DIR 6 Days Qty: 21 0RF Rx Instructions: PO PER PKG DIR Follow-up/Referrals: Ashwin Hebert MD [Primary Care Provider] - Time of Disposition: 08:59 Quality NIHSS Nursing Documentation ED NIHSS nursing documentation: reviewed/agree
[2024-07-28 08:51] LABS: EDCOVIDSCREEN Negative (Negative); EDSTREPNEGPOS1 Negative (Negative)
== END 2024-07-28 09:02 | disposition home or self-care (01) ==
PROVIDERS: Emergency Provider Nurse Practitioner Family; PCP Family Medicine
DX: J06.9 Acute upper respiratory infection, unspecified (principal); Z20.822 Contact with and (suspected) exposure to COVID-19; E03.9 Hypothyroidism, unspecified; E78.5 Hyperlipidemia, unspecified; K21.9 Gastro-esophageal reflux disease without esophagitis; R73.01 Impaired fasting glucose; M47.816 Spondylosis without myelopathy or radiculopathy, lumbar region; Z79.82 Long term (current) use of aspirin
CPT/HCPCS: 87081; 87426; 87880; 99213; G0463

== ENCOUNTER 2024-09-17 14:30 | Outpatient (RCR) | payer MEDICARE, SELFPAY ==
--- NOTE | 2024-08-23 11:45 | OPREHPOC ---
Outpatient Therapy Plan of Care This is a Multidisciplinary Plan of Care that may contain components documented by all disciplines (PT, OT, and ST.) PT Problem 1 PT Problem #1 Knowledge Deficit PT Goal 1 Goal / Goal Update Horatio with HEP Target Visit 4 PT Goal 2 Goal / Goal Update Report no neck pain greater that 2/10 Target Visit 8 PT Problem 2 PT Problem #2 Impaired Range of Motion PT Goal 1 Goal / Goal Update 1. Improve sarai hamstring 90/90 flexibility to less that -30 degrees t reduce lumbar pull with ADLs 2. Improve sarai hip abduction ROM to 40 degrees to improve hip mobility for gait and transfer activity Target Visit 8 PT Problem 3 PT Problem #3 Impaired Strength PT Goal 1 Goal / Goal Update 1. Improve sarai hip abduction strength to 4+/5 to improve lateral stability of pelvis to reduce low back pain 2. Improve sarai hip flexion to 5/5 to improve foot clearance with gait activity Target Visit 8 PT Problem 4 PT Problem #4 Impaired Functional Mobility PT Goal 1 Goal / Goal Update Improve Tinetti score by 4 points to reduce gross fall risk Target Visit 8
--- NOTE | 2024-08-23 11:45 | PTOPEVAL1 ---
Assessment and note entered by Vicente Thapa, PT Evaluation Information Assessment Status Evaluation ICD-10 Condition Codes (PT) Cervicalgia M54.2,Abnormalities of gait and mobility R26.9 Onset Chronic Subjective Information Reports that he has had progressive issues with balance and instability with transfers. He also has a history of progressive back and neck pain. The neck has really been bothering him more as of late. He has been getting out and walking more lately, but was not active much this winter. Pain is worse with prolonged standing activity. Reports that he rarely has any radicular symptoms into legs. Denies any history of falls. Does not get comfortable sleep, but also sleeps with a CPAP. Reported Pain Level Pain Score 2: Self Report Assessment PT Clinical Summary Patient presents with multitude of issues compounding into spinal pain and gait instability. Patient presents with postural deficits of cervical spine and lumbar spine with notable loss in ROM and flexibility compounding on spinal degeneration. Demonstrate Moderate fall risk at this time but no history of falls. Patient will benefit form skilled therapy to address mobility loss, weakness, and relieve cervicogenic pain to improve stability and mobility for ADL performance . Plan of Care Interventions Gait Training,Neuro Re-education,Therapeutic Activities,Therapeutic Exercise PT Services Indicated Yes Treatment Frequency and 2x/week for 8 visits Duration These treatments will address the objective and functional deficits as defined above. The patient will be advanced safely and appropriately in order for the patient to progress towards his/her prior level of function. Additional exercises will be introduced and as well as a comprehensive home exercise program upon discharge, if needed, ?to ensure carryover of functional gains achieved in the clinic. This treatment plan has been reviewed and agreement upon by the patient.
--- NOTE | 2024-09-17 15:16 | PTOPDC ---
Assessment and note entered by Salima Uriostegui, PT Assessment Status Discharge ICD-10 Condition Codes (PT) Cervicalgia M54.2,Abnormalities of gait and mobility R26.9 Onset Chronic Subjective Information neck pain is less, not using the muscle cream daily like he was; walking and balance are better have been doing the exercises at home and they have helped; have not had any falls; no problems lately with mobility; Reported Pain Level Pain Score 0: Self Report Assessment PT Clinical Summary Shahzad has received 8 PT sessions. He has improved and today: reports no pain in his neck or back; increase flexibility of R and L hamstring, piriformis muscles and hip abduction motion; increase strength of R and L LE's with mat exercises; 5 reps sit/stand time of 15 seconds, without use of UE; Tinetti balance/gait score of 28/28; LE functional scale rating of 11% limitation in activity level; 2 minute walking test distance of '. Education for HEP and safety with mobility. The goals were achieved, except hamstring length of R LE. Discharge PT services. He is to continue with his HEP and activity as tolerated. Plan of Care PT Services Indicated No
== END 2024-09-17 16:36 | disposition home or self-care (01) ==
LOC: ANHPT 14:30
PROVIDERS: PCP Family Medicine; Visit Provider Family Medicine
DX: R26.89 Other abnormalities of gait and mobility (principal); M54.2 Cervicalgia
CPT/HCPCS: 97110; 97112; 97140; 97161; 97530

== ENCOUNTER 2025-01-28 06:42 | Outpatient (CLI) | payer MEDICARE, SELFPAY ==
--- OUTSIDE RECORDS SUMMARY | 2025-01-28 06:45 | XMS_ITS | Encounter Summary ---
Author Organization [facility] Address [address] [place] [address] Phone Care Team Providers Care Dog Daycare Provider Name Role Phone Ashwin Hebert MD Primary Care Provider Reason for Referral * MRI/CAT/PET Scan (Routine) - Closed Specialty Diagnoses / Procedures Referred By Rock t Referred To Contact Radiology Diagnoses Chronic obstructive pulmonary disease, unspecified COPD type (HCC) Procedures CT chest without contrast Milagros Jose MD [address] [place] [address] Phone: tel: fax: [address] [phone] Referral ID Status Reason Start Date Expiration Date Visits Re quested Visits Authorized [id number] Closed 01/12/2021 02/11/2022 1 1 Encounter Details Date Type Department Care Team (Late st Contact Info) Description 01/12/2021 Documentation [facility] Pulmonary [address] [facility] Advanced Medicine 8th [place] [address] [place] [address] Elisa Morales RN Social History Tobacco Use Types Packs/Day Years Used Date Smoking Tobacco: Never Smokeless Tobacco: Never Alcohol Use Standard Drinks/Week Comments Yes 0 (1 standard drink = 0.6 oz pur e alcohol) 2 to 3 beers/ week Sex and Gender Information Value Date Recorded Sex Assigned at Not on file Legal Sex Male 12:57 AM CARD TENDER Gender Identity Not on file Sexual Orientation Not on file documented as of this encounter Plan of Treatment Not on file documented as of this encounter Results * CT chest without contrast (01/12/2022 12:47 PM CDT) Anatomical Region Laterality Modality Body N/A Computed Tomogra phy 01/12/2022 1:50 PM CDT Impressions 01/12/2022 2:21 PM CDT Stable size of a right upper lobe pulmonary nodule, now demonstrating calcification, consistent with granuloma. No further routine followup is necessary. Dictated by: Ranulfo Romero M.D. The radiology attending physician has personally reviewed this study, and had reviewed and/or edited this written report and agrees with it. Electronically signed by: Yvan Franklin M.D. Narrative 01/12/2022 2:21 PM CDT EXAMINATION: Computed tomography of the chest without intravenous contrast HISTORY: 66-year-old male with pulmonary nodules. Follow-up TECHNIQUE: Transaxial computed tomographic images of the chest were obtained without intravenous contrast according to the standard protocol. COMPARISON: 01/09/2021 FINDINGS: No axillary, supraclavicular, mediastinal or hilar lymphadenopathy. There are atherosclerotic calcifications of the coronary arteries. Calcified left hilar lymph nodes and a calcified nodule of the left lung are likely sequela of prior granulomatous disease. A 4 mm right upper lobe pulmonary nodule stable in size, now demonstrating internal calcification (series 3 image 46). No pneumothorax or pleural effusion. No new or suspicious pulmonary nodules. Limited views of the upper abdomen are normal. No suspicious osseous lytic or blastic lesions. Procedure Note Yvan Franklin MD - 01/12/2022 EXAMINATION: Computed tomography of the chest without intravenous contrast HISTORY: 66-year-old male with pulmonary nodules. Follow-up TECHNIQUE: Transaxial computed tomographic images of the chest were obtained without intravenous contrast according to the standard protocol. COMPARISON: 01/09/2021 FINDINGS: No axillary, supraclavicular, mediastinal or hilar lymphadenopathy. There are atherosclerotic calcifications of the coronary arteries. Calcified left hilar lymph nodes and a calcified nodule of the left lung are likely sequela of prior granulomatous disease. A 4 mm right upper lobe pulmonary nodule stable in size, now demonstrating internal calcification (series 3 image 46). No pneumothorax or pleural effusion. No new or suspicious pulmonary nodules. Limited views of the upper abdomen are normal. No suspicious osseous lytic or blastic lesions. IMPRESSION: Stable size of a right upper lobe pulmonary nodule, now demonstrating calcification, consistent with granuloma. No further routine followup is necessary. Dictated by: Ranulfo Romero M.D. The radiology attending physician has personally reviewed this study, and had reviewed and/or edited this written report and agrees with it. Electronically signed by: Yvan Franklin M.D. Milagros Jose MD IMG CT PROCEDURES Final Result documented in this encounter Visit Diagnoses Diagnosis Chronic obstructive pulmonary disease, unspecified COPD type (HCC)- Primary Chronic obstructive pulmonary disease, unspecified COPD type (HCC) documented in this encounter Additional Health Concerns Infection Onset Date Last Indicated Resolved Time COVID: Suspected 09/01/2022 09/01/2022 09/01/2022 9:34 AM CARD TENDER documented as of this encounter Care Teams Dog Daycare Provider Relationship Specialty Start Date End Date Ashwin Hebert MD [address] [place] [address] PCP - General 05/17/19 documented as of this encounter
--- OUTSIDE RECORDS SUMMARY | 2025-01-28 06:45 | XMS_ITS | Encounter Summary ---
Author Organization [facility] Facility Care Team Providers Care Interventional Technologist Name Role Phone Ashwin Hebert MD Primary Care Provider Encounter Details Date Type Department Care Team (Latest Contact Info) Description 09/22/2015 Orders Only [facility] CLINCONV ProviderSteven MD [address] [place] [address] Social History Tobacco Use Types Packs/Day Years Used Date Smoking Tobacco: Never Assessed Sex and Gender Information Value Date Recorded Sex Assigned at Not on file Legal Sex Male 12:57 AM ARMATURE WINDER REPAIR Gender Identity Not on file Sexual Orientation Not on file documented as of this encounter Plan of Treatment Not on file documented as of this encounter Procedures Procedure Name Priority Date/Time Associated Diagnosis Comments CARDIOLOGY REPORT 04/05/2016 12: 00 AM CDT documented in this encounter Results * CARDIOLOGY REPORT (04/05/2016 12:00 AM CDT) Anatomical Region Laterality Modality Other Narrative 04/05/2016 12:00 AM CDT Ordered by an unspecified provider. us Historical Provider [facility] Final Result documented in this encounter Visit Diagnoses Not on filedocumented in this encounter Additional Health Concerns Infection Onset Date Last Indicated Resolved Time COVID: Suspected 09/01/2022 09/01/2022 09/01/2022 9:34 AM ARMATURE WINDER REPAIR documented as of this encounter Care Teams Interventional Technologist Relationship Specialty Start Date End Date Ashwin Hebert MD [address] [place] [id number] PCP - General 05/17/19 documented as of this encounter
--- OUTSIDE RECORDS SUMMARY | 2025-01-28 06:46 | XMS_ITS | Clinical Summary ---
Author Organization [facility] Address [address] [place] [address] Care Team Providers Care Municipal Engineer Name Role Phone Ashwin Hebert MD Primary Care Provider Allergies No known active allergies Medications levothyroxine (SYNTHROID) 25 mcg tablet daily Active rosuvastatin (CRESTOR) 5 mg tablet 1 tablet (5 mg total) daily Active aspirin 81 mg enteric coated tablet 1 tablet (81 mg total) daily Active docosahexanoic acid/epa (FISH OIL ORAL) Take by mouth daily Active cinnamon bark (CINNAMON ORAL) Take by mouth daily Active ascorbic acid/multivit-m in (EMERGEN-C IMMUNE PLUS ORAL) Take by mouth Active bergamot extract (Ogle Bergamot) 500 mg capsule Take 1 tablet by mouth daily Active melatonin tablet Take 1 tablet (1 mg total) by mouth nightly Active pantoprazole DR (PROTONIX) 40 mg EC tablet Take 1 tablet (40 mg total) by mouth every morning 06/15/2023 Active Active Problems Problem Noted Date Diagnosed Date 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 He has previously had improvement, I will be it short lived, through the use of injection laryngoplasty. For this reason, I have recommended bilateral type one medialization thyroplasty. The risks and benefits of the procedure, including but not limited to, bleeding, pain, infection, airway swelling, possible worsening of voice, need for future surgery, and implant extrusion were discussed with the patient. He agrees and wishes to proceed. Paradoxical vocal fold motion disorder 1 Assessment & Plan (03/19/2021 11:52 AM CDT): There is very clear evidence of paradoxical vocal fold motion seen on exam today, which I think is the reason behind the gas being that he suddenly experiences. Once we have been able to appropriately augment his vocal folds with implants, I would have him participate in laryngeal control therapy to gain better control of his laryngeal breathing mechanics. 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 07/20/2024 Chronic laryngitis 03/24/2016 Chronic obstructive pulmonary disease 07/20/2024 Interstitial lung disease Immunizations Immunization Administration Dates Next Due Influenza, Quadrivalent, Hig h Dose, Preservative Free, Intrr 04/30/2020 Pneumococcal Conjugate PCV 13 06/06/2020 Pneumococcal Polysaccharide PPV23 06/10/2021 Td, adsorbed 06/21/2002 Surgical History Surgery Date Site/Laterality Comments APPENDECTOMY as a child COLONOSCOPY ESOPHAGOGASTRODUODENOSCOPY CATARACT EXTRACTION Right Medical History Medical History Date Comments Sleep apnea uses CPAP Hyperlipidemia GERD (gastroesophageal reflux disease) Hypothyroidism Dyslipidemia 04/05/2016 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 Chronic laryngitis 03/24/2016 Family History Medical History Relation Name Comments Diabetes Brother Diabetes Father Lung cancer Father Heart failure Mother Relation Name Status Comments Brother Father Mother Social History Tobacco Use Types Packs/Day Years Used Date Smoking Tobacco: Never Passive Smoke Exposure: Past Smokeless Tobacco: Never Tobacco Cessation:Counseling Given: Not Answered Alcohol Use Standard Drinks/Week Comments Yes 0 (1 standard drink = 0.6 oz pur e alcohol) 2 to 3 beers/ week Sex and Gender Information Value Date Recorded Sex Assigned at Not on file Legal Sex Male 12:57 AM LEGAL OFFICE ADMINISTRATOR Gender Identity Not on file Sexual Orientation Not on file Obstetrics History Last Filed Vital Signs Vital Sign Reading Time Taken Comments Blood Pressure 129/83 07/20/2024 1:02 PM LEGAL OFFICE ADMINISTRATOR Pulse 67 07/20/2024 1:02 PM LEGAL OFFICE ADMINISTRATOR Temperature 36.8 C (98.2 F) 07/20/2024 1:02 PM LEGAL OFFICE ADMINISTRATOR Respiratory Rate 18 07/20/2024 1:02 PM LEGAL OFFICE ADMINISTRATOR Oxygen Saturation 96% 07/20/2024 1:02 PM LEGAL OFFICE ADMINISTRATOR Inhaled Oxygen Concentration - - Weight 92.1 kg (203 lb) 07/20/2024 1:02 PM LEGAL OFFICE ADMINISTRATOR Height 177.8 cm (5' 10) 07/20/2024 1:02 PM LEGAL OFFICE ADMINISTRATOR Body Mass Index 29.13 07/20/2024 1:02 PM LEGAL OFFICE ADMINISTRATOR Plan of Treatment Health Maintenance Due Date Last Done Comments Colon Cancer Screening-Colonoscopy 1955 Depression Screening 1954 Fall Risk Assessment 1955 Hepatitis C Screening 1954 Hepatitis B Screening 1972 DTaP/Tdap/Td Vaccine (1 - Tdap) 06/22/2002 2 Zoster Vaccine (1 of 2) 2004 Well Visit 65+ 2019 Covid-19 Vaccine (2 - season) 02/26/202401/2021 Influenza Vaccine (#1) 2025 04/30/2020 Prostate Cancer Screening-PSA Discontinued 11/08/2013 Pneumococcal vaccine 65+ Completed 06/10/2021, 05/27 Medical Devices Implanted Type Area Bill Checker Device Identifier Shelf Expiration Date Model / Serial / Lot [employer] Sn60wf.125 Acrysof Iq Natural Stableforce Acrysert 6mm 13mm 1 Piece Foldable - [id number] - [id number] Implanted:Qty: 1 on 05/17/2019 by Mckinley Roberto DO at [facility] Right: Anterior Chamber [employer] 10/25/2023 SN60WF.12 5 / [id number] Description:CDE = 2.76 [employer] Sn60wf.160 Acrysof Iq Natural Stableforce Acrysert 6mm 13mm 1 Piece Foldable - [id number] - [id number] Implanted:Qty: 1 on 07/19/2019 by Mckinley Roberto DO at [facility] Left: Eye [employer] 04/26/2024 SN60WF.16 0 / [id number] / Procedures Procedure Name Priority Date/Time Associated Diagnosis Comments PSA SCREEN Routine 11/08/2013 3:22 PM CDT from Last 3 Months or Most Recently Relevant to Health Maintenance Results * PSA screen (11/08/2013 3:22 PM CDT) PSA Screen 0.4 0.0 - 3.9 ng/mL Comment: Method: ECLIA Values obtained by different assay methods cannot be used interchangeably. Use sequential testing to confirm baseline if assay method changed during patient monitoring. 11/08/2013 3:22 PM CDT 11/08/2013 3:29 PM CDT Deonte Dela Cruz MD LAB BLOOD ORDERABLES Final Result [facility] HISTORICAL RESULTS from Last 3 Months or Most Recently Relevant to Health Maintenance Insurance [employer] [facility] AETNA MEDICARE [facility] [facility] MEDICARE [facility] MEDICARE Care Teams Municipal Engineer Relationship Specialty Start Date End Date Ashwin Hebert MD [address] [facility] [address] [place] [address] PCP - General 05/17/19
--- OUTSIDE RECORDS SUMMARY | 2025-01-28 06:46 | XMS_ITS | Encounter Summary ---
Author Organization [facility] Facility Care Team Providers Care Injection Mold Technician Name Role Phone Ashwin Hebert MD Primary Care Provider Encounter Details Date Type Department Care Team (Latest Contact Info) Description 11/09/2013 Orders Only [facility] CLINCONV ProviderSteven MD [address] [place] [address] Social History Tobacco Use Types Packs/Day Years Used Date Smoking Tobacco: Never Assessed Sex and Gender Information Value Date Recorded Sex Assigned at Not on file Legal Sex Male 12:57 AM PASTA PRESS OPERATOR Gender Identity Not on file Sexual Orientation Not on file documented as of this encounter Plan of Treatment Not on file documented as of this encounter Procedures Procedure Name Priority Date/Time Associated Diagnosis Comments CARDIOLOGY REPORT 04/05/2016 12: 00 AM CDT CARDIOLOGY REPORT 04/05/2016 12: 00 AM CDT CARDIOLOGY REPORT 04/05/2016 12: 00 AM CDT documented in this encounter Results * CARDIOLOGY REPORT (04/05/2016 12:00 AM CDT) Anatomical Region Laterality Modality Other Narrative 04/05/2016 12:00 AM CDT Ordered by an unspecified provider. Historical Provider [facility] Final Result * CARDIOLOGY REPORT (04/05/2016 12:00 AM CDT) Anatomical Region Laterality Modality Other Narrative 04/05/2016 12:00 AM CDT Ordered by an unspecified provider. us Historical Provider [facility] PROCE DURES Final Result * CARDIOLOGY REPORT (04/05/2016 12:00 AM CDT) Anatomical Region Laterality Modality Other Narrative 04/05/2016 12:00 AM CDT Ordered by an unspecified provider. us Historical Provider [facility] PROCE DURES Final Result documented in this encounter Visit Diagnoses Not on filedocumented in this encounter Additional Health Concerns Infection Onset Date Last Indicated Resolved Time COVID: Suspected 09/01/2022 09/01/2022 09/01/2022 9:34 AM PASTA PRESS OPERATOR documented as of this encounter Care Teams Injection Mold Technician Relationship Specialty Start Date End Date Ashwin Hebert MD [address] [facility] [address] [place] [address] PCP - General 05/17/19 documented as of this encounter
--- OUTSIDE RECORDS SUMMARY | 2025-01-28 06:46 | XMS_ITS | Clinical Summary ---
Author Organization [facility] Address [address] [address] Care Team Providers Care Hydro Excavation Operator Name Role Phone Ashwin Hebert MD Primary Care Provider [phone] Source Comments [facility],non-owned Affiliates and Associated Physician Practices is amultiple site organization consisting of ambulatory clinics and hospital sitesin [place], [place], [place] and [place]. This disclosure is being madepursuant to the Care Everywhere program and may not contain all information available regarding this patient. Last updated 18.[facility] Socialtext Allergies No known active allergies Medications * Be aware that medications may not be up to date on this document. Alwaysverify current medications with the patient. pantoprazole EC (PROTONIX) 40 MG tablet Take 4 mg by mouth once daily 02/16/2020 Active aspirin EC (ECOTRIN) 81 MG tablet Take 1 (one) tablet by mouth once daily Active levothyroxine (SYNTHROID) 25 MCG tablet Take 1 (one) tablet by mouth once daily Active rosuvastatin (CRESTOR) 5 MG tablet Take 1 (one) tablet by mouth once daily Active Cinnamon 500 MG Take 1 (one) tablet by mouth once daily Active Fish Oil-Cholecalcif manuel (FISH OIL + D3 PO) Take 1 tablet by mouth once daily Active terbinafine (LamISIL) 250 MG tablet Take 1 (one) tablet by mouth once daily 01/06/2023 Active melatonin 1 MG tablet Take 1 (one) tablet by mouth at bedtime Active Misc Natural Products (WHITE WILLOW BARK PO) Take 1 tablet by mouth once daily Active [place] Bergamot 650 MG TABS Take 1 tablet by mouth once daily Active Immunizations Immunization Administration Dates Next Due INFLUENZA VACCINE, HIGH-DOSE , QUADR. (FLUZONE HIGH-DOSE QUADRIVALENT; 65Y+), 0.7 ML (HD-IIV4) 04/30/2020 Pneumococcal Pcv13 Conj 06/06/2020 Family History Medical History Relation Name Comments Lung Disease Father Asbestosis Relation Name Status Comments Father Social History Tobacco Use Types Packs/Day Years Used Date Smoking Tobacco: Never Smokeless Tobacco: Never Tobacco Cessation:Counseling Given: Not Answered Alcohol Use Standard Drinks/Week Comments Yes 3 (1 standard drink = 0.6 oz pur e alcohol) social AUDIT-C Answer Date Recorded Q1: How often do you have a drink containing alc ohol? Monthly or less 03/31/2020 Q2: How many drinks containi ng alcohol do you have on a typical day when you are drinking? 1 or 2 03/31/2020 Frequency of Binge Drinking Not on file 10/2019 Sex and Gender Information Value Date Recorded Sex Assigned at Not on file Legal Sex Male 12:29 PM BLENDING TANK HELPER Gender Identity Not on file Sexual Orientation Not on file Last Filed Vital Signs Vital Sign Reading Time Taken Comments Blood Pressure 126/79 03/03/2023 9:56 AM CDT Pulse 60 03/03/2023 9:56 AM CDT Temperature 36.8 C (98.3 F) 03/04/2022 2:25 PM CDT Respiratory Rate - - Oxygen Saturation - - Inhaled Oxygen Concentration - - Weight 89.4 kg (197 lb) 03/03/2023 9:56 AM CDT Height 175.3 cm (5' 9) 03/03/2023 9:56 AM CDT Body Mass Index 29.09 03/03/2023 9:56 AM CDT Plan of Treatment Upcoming Encounters Date Type Department Care Team (Late st Contact Info) Description 03/21/2025 10:30 AM CDT Testing Visit [facility] - ENT [address] [place] [address] Cher Huston, AuD [address] [place] [address] 03/21/2025 11:00 AM CDT Office Visit [facility] - ENT [address] [place] [address] Jason Oscar MD [address] [facility] [address] [place] [address] Health Maintenance Due Date Last Done Comments COLOGUARD (AGES 45-75) - COL ON CA SCREENING 1954 COLON MONITORING 1954 COLONOSCOPY - COLON CA SCREENING 1954 CT COLONOGRAPHY - COLON CA SCREENING 1955 Colorectal Cancer Screening 1954 FIT - COLON CA SCREENING 1954 FLEX SIG - COLON CA SCREENING 1954 HEPATITIS C SCREENING 04/16/1972 DTAP/TDAP/TD VACCINES (1 - Tdap) 1973 ZOSTER VACCINE (1 of 2) 2004 PNEUMOCOCCAL VACCINE 50+ (2 of 2 - PCV20 or PCV21) 06/06/2021 06/06/2020 COVID-19 VACCINE ( - 2023-2 5 season) 2024 DEPRESSION SCREENING 06/27/2024 MEDICARE AWV CALENDAR YEAR 2024 INFLUENZA VACCINE (#1) 2025 04/30/2020 Respiratory Syncytial Virus (RSV) Vaccine Pt: or over 60 yrs (1 - 1-dose 75+ series) 2029 HEPATITIS B VACCINE Aged Out No longe r eligible based on patient's age to complete this topic HIB VACCINE Aged Out No longer eligi ble based on patient's age to complete this topic HPV VACCINE Aged Out No longer eligi ble based on patient's age to complete this topic MENINGOCOCCAL (Group B) VACC INE SHARED DECISION-MAKING Aged Out No longer eligibl e based on patient's age to complete this topic MENINGOCOCCAL GROUPS A/C/Y/W VACCINE Aged Out No longer eligible b ased on patient's age to complete this topic Insurance AETNA MEDICARE ADV Care Teams Hydro Excavation Operator Relationship Specialty Start Date End Date Ashwin Hebert MD [address] [place] [address] PCP - General 02/18/20
--- OUTSIDE RECORDS SUMMARY | 2025-01-28 06:46 | XMS_ITS | Encounter Summary ---
Author Organization [facility] Facility Care Team Providers Care Mineral Economist Name Role Phone Ashwin Hebert MD Primary Care Provider Encounter Details Date Type Department Care Team (Latest Contact Info) Description 11/22/2013 Orders Only [facility] CLINCONV ProviderSteven MD [address] [place] [address] Social History Tobacco Use Types Packs/Day Years Used Date Smoking Tobacco: Never Assessed Sex and Gender Information Value Date Recorded Sex Assigned at Not on file Legal Sex Male 12:57 AM MANAGER ANDROID Gender Identity Not on file Sexual Orientation [...] COVID: Suspected 09/01/2022 09/01/2022 09/01/2022 9:34 AM MANAGER ANDROID documented as of this encounter Care Teams Mineral Economist Relationship Specialty Start Date End Date Ashwin Hebert MD [address] [place] [id number] PCP - General 05/17/19 documented as of this encounter
--- OUTSIDE RECORDS SUMMARY | 2025-01-28 06:46 | XMS_ITS | Referral Summary ---
Author Organization [facility] Address [address] [place] [address] Care Team Providers Care Print Buyer Name Role Phone Ashwin Hebert MD Primary [...] ORAL) Take by mouth Active bergamot extract (Obion Bergamot) 500 mg capsule Take 1 tablet [...] to proceed. 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 Gender Identity Not on file Sexual Orientation Not on file Last Filed Vital Signs Vital Sign Reading Time Taken Comments Blood Pressure 129/83 07/20/2024 1:02 PM SAND WHEELER Pulse 67 07/20/2024 1:02 PM SAND WHEELER Temperature 36.8 C (98.2 F) 07/20/2024 1:02 PM SAND WHEELER Respiratory Rate 18 07/20/2024 1:02 PM SAND WHEELER Oxygen Saturation 96% 07/20/2024 1:02 PM SAND WHEELER Inhaled Oxygen Concentration - - Weight 92.1 kg (203 lb) 07/20/2024 1:02 PM SAND WHEELER Height 177.8 cm (5' 10) 07/20/2024 1:02 PM SAND WHEELER Body Mass Index 29.13 07/20/2024 1:02 PM SAND WHEELER Plan of Treatment Not on file Medical Devices Implanted Type Area Vibrator Operator Device Identifier Shelf Expiration Date Model / Serial / Lot [employer] Sn60wf.125 Acrysof Iq Natural Stableforce Acrysert 6mm 13mm 1 Piece Foldable - [id number] - [id number] Implanted:Qty: 1 on 05/17/2019 by Mckinley Roberto DO at [facility] Right: Anterior Chamber [employer] 10/25/2023 SN60WF.12 5 / [id number] / Description:CDE = 2.76 [employer] Sn60wf.160 Acrysof Iq Natural Stableforce Acrysert 6mm 13mm 1 Piece Foldable - [id number] - [id number] Implanted:Qty: 1 on 07/19/2019 by Mckinley Roberto DO at [facility] Left: Eye [employer] 04/26/2024 SN60WF.16 0 / [id number] / Procedures Procedure Name Priority Date/Time Associated Diagnosis Comments PSA SCREEN Routine 11/08/2013 3:22 PM CDT from Last 3 Months or Most Recently Relevant to Health Maintenance Results * PSA screen (11/08/2013 3:22 PM CDT) [facility] Signature PSA Screen 0.4 0.0 - 3.9 ng/mL 11/08/2013 4:[address] [facility] HISTORICAL RESULTS Comment: Method: ECLIA Values obtained by different assay methods cannot be used interchangeably. Use sequential testing to confirm baseline if assay method changed during patient monitoring. 11/08/2013 3:22 PM CDT 11/08/2013 3:29 PM CDT Deonte Dela Cruz MD LAB BLOOD ORDERABLES Final Result [facility] HISTORICAL RESULTS from Last 3 Months or Most Recently Relevant to Health Maintenance Insurance [employer] MEDICARE [facility] MEDIC[facility] Address: [address] [place] [address] [facility] MEDICARE Care Teams Print Buyer Relationship Specialty Start Date End Date Ashwin Hebert MD [address] [facility] [address] [place] [address] PCP - General 05/17/19
--- OUTSIDE RECORDS SUMMARY | 2025-01-28 06:46 | XMS_ITS | Encounter Summary ---
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
--- OUTSIDE RECORDS SUMMARY | 2025-01-28 06:46 | XMS_ITS | Encounter Summary ---
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 us Historical Provider Final Res ult documented in this encounter Visit Diagnoses Not on filedocumented in this encounter Additional Health Concerns Infection Onset Date Last Indicated Resolved Time COVID: Suspected 09/01/2022 09/01/2022 09/01/2022 9:34 AM WELDING PRODUCTION SUPERVISOR documented as of this encounter Care Teams Surgical Endoscopist Relationship Specialty Start Date End Date Ashwin Hebert MD [address] [id number] PCP - General 05/17/19 documented as of this encounter
[2025-01-28 08:07] LABS: Alanine Aminotransferase 25 U/L (6-50); Albumin Level 4.0 g/dL (3.5-5.1); Alkaline Phosphatase 43 U/L (38-126); Anion Gap 6 mmol/L (4-12); Aspartate Amino Transferase 29 U/L (17-59); Bilirubin,Total 0.6 mg/dL (0.2-1.3); Blood Urea Nitrogen 17 mg/dL (9-20); Calcium 9.0 mg/dL (8.4-10.2); Carbon Dioxide 25 mmol/L (22-30); Chloride 109 mmol/L (98-107); Estimated Glomerular Filt Rate > 60; Glucose 108 mg/dL (65-110); Hemoglobin A1C 5.8 % (<5.7); Potassium 4.5 mmol/L (3.4-5.0); Sodium 140 mmol/L (137-145); Total Protein 6.9 g/dL (6.3-8.2)
[2025-01-28 08:44] LABS: Thyroid Stimulating Hormone 2.510 uIU/mL (0.465-4.680)
== END 2025-01-28 06:43 | disposition home or self-care (01) ==
LOC: ANHLAB 06:43
PROVIDERS: PCP Family Medicine; Visit Provider Family Medicine
DX: E78.5 Hyperlipidemia, unspecified (principal); E03.9 Hypothyroidism, unspecified; R73.01 Impaired fasting glucose; I25.10 Atherosclerotic heart disease of native coronary artery without angina pectoris; Z00.00 Encounter for general adult medical examination without abnormal findings
CPT/HCPCS: 36415; 80053; 83036; 84443